=== PATIENT | male | born 1990 | race Two or more races ===

== ENCOUNTER → 2016-10-09 | Outpatient (CLI) | payer BC ==
[~2016-10-09] MED LIST: BUS10T PO; HYDR10TA35; HYDR50CA PO
[2016-10-09 14:16] LABS: Basophils # (auto) 0 uL; Basophils % (auto) 0.2 % (0.0-2.0); CONDITION Y; Eosinophils # (auto) 0.1 uL; Eosinophils % (auto) 2.7 % (0.0-7.0); Hematocrit 40.2 % (41.0-53.0); Hemoglobin 13.9 g/dL (13.5-17.5); Lymphocytes # (auto) 2.8 uL; Lymphocytes % (auto) 51.8 % (10.0-50.0); Mean Corpuscular Hemoglobin 30.6 pg (28.0-32.0); Mean Corpuscular Hgb Conc. 34.6 g/dL (32.0-36.0); Mean Corpuscular Volume 88.4 fL (80.0-100.0); Mean Platelet Volume 7.9 fL (7.4-10.4); Monocytes # (auto) 0.3 uL; Monocytes % (auto) 6.4 % (0.0-12.0); Neutrophils # (auto) 2.1 uL; Neutrophils % (auto) 38.9 % (37.0-80.0); Platelet Count (auto) 274 10^3/uL (140-450); White Blood Cell 5.4 10^3/uL (4.4-10.8)
[2016-10-09 14:37] LABS: Albumin 3.8 g/dL (3.4-5.0); Alkaline Phosphatase 67 U/L (45-117); Anion Gap 10 (5-15); Aspartate Aminotransferase 28 U/L (15-37); BUN/Creatinine Ratio 9.5; Bilirubin, Total 0.8 mg/dL (0.2-1.0); Blood Urea Nitrogen 12 mg/dL (7-18); Calcium 8.5 mg/dL (8.5-10.1); Carbon Dioxide 23 mmol/L (21-32); Chloride 105 mmol/L (98-107); GFR African American 89 mL/min; GFR Non-African American 74 mL/min; Glucose 145 mg/dL (74-106); Magnesium 2.3 mg/dL (1.6-2.6); Potassium 3.4 mmol/L (3.5-5.1); Sodium 138 mmol/L (136-145)
[2016-10-09 14:43] LABS: Vitamin B12 687 pg/mL (211-911)
[2016-10-09 14:45] LABS: Temperature: 23.9 C (20.0-25.0)
== END | disposition home or self-care (01) ==
LOC: LAB 13:57
DX: F84.9 Pervasive developmental disorder, unspecified (principal); R41.3 Other amnesia
CPT/HCPCS: 36415; 80053; 82550; 82607; 82746; 83735; 84439; 84443; 85025; 85652; 86141

== ENCOUNTER → 2016-11-19 | Outpatient (CLI) | payer BC ==
[2016-11-19 11:16] LABS: Cholesterol 144 mg/dL (< 200); HDL Cholesterol 88 mg/dL (40-59); LDL Cholesterol 69 mg/dL (< 100); Triglycerides 45 mg/dL (< 150)
== END | disposition home or self-care (01) ==
LOC: LAB 10:39
DX: E78.5 Hyperlipidemia, unspecified (principal)
CPT/HCPCS: 36415; 80061

== ENCOUNTER → 2016-12-09 | Outpatient (CLI) | payer BC | END | disposition home or self-care (01) | LOC: LAB 07:24 | DX: E11.9 Type 2 diabetes mellitus without complications (principal) | CPT/HCPCS: 36415; 82947; 83036 ==

== ENCOUNTER → 2017-12-10 | Outpatient (CLI) | payer BC ==
[2017-12-10 13:45] LABS: Basophils # (auto) 0 uL; Basophils % (auto) 0.5 % (0.0-2.0); Eosinophils # (auto) 0.1 uL; Eosinophils % (auto) 1.5 % (0.0-7.0); Hematocrit 42.2 % (41.0-53.0); Hemoglobin 14.8 g/dL (13.5-17.5); Lymphocytes # (auto) 1.8 uL; Lymphocytes % (auto) 28.4 % (10.0-50.0); Mean Corpuscular Hemoglobin 31.3 pg (28.0-32.0); Mean Corpuscular Hgb Conc. 34.9 g/dL (32.0-36.0); Mean Corpuscular Volume 89.5 fL (80.0-100.0); Monocytes # (auto) 0.7 uL; Monocytes % (auto) 10.5 % (0.0-12.0); Neutrophils # (auto) 3.8 uL; Neutrophils % (auto) 59.1 % (37.0-80.0); Nucleated Red Blood Cells % 0.1 %; Platelet Count (auto) 328 10^3/uL (140-450); Red Blood Cells 4.72 10^6/uL (4.5-5.90); Red Cell Distribution Width 12.8 % (11.8-14.3); White Blood Cell 6.4 10^3/uL (4.4-10.8)
[2017-12-10 15:33] LABS: Calcium 8.7 mg/dL (8.5-10.1); Potassium 3.8 mmol/L (3.5-5.1)
[2017-12-10 15:40] LABS: BUN/Creatinine Ratio 7.9; Bilirubin, Total 1.3 mg/dL (0.2-1.0); Total Protein 7.5 g/dL (6.4-8.2)
== END | disposition home or self-care (01) ==
LOC: LAB 13:23
PROVIDERS: ATTEND Internal Medicine
DX: F32.9 Major depressive disorder, single episode, unspecified (principal); F84.0 Autistic disorder
CPT/HCPCS: 36415; 80053; 84439; 84443; 85025; 86706

== ENCOUNTER → 2022-09-24 | Outpatient (CLI) | payer MEDICAID ==
[2022-09-24 08:59] LABS: Basophils # (auto) 0.1 10 ^3/uL (0-0.2); Basophils % (auto) 0.7 % (0.0-2.0); Eosinophils # (auto) 0.2 10 ^3/uL (0-0.8); Eosinophils % (auto) 2.8 % (0.0-7.0); Hematocrit 48.9 % (41.0-53.0); Hemoglobin 16.5 g/dL (13.5-17.5); Lymphocytes # (auto) 2.9 10 ^3/uL (0.4-5.4); Lymphocytes % (auto) 35.7 % (10.0-50.0); Mean Corpuscular Hemoglobin 30.6 pg (28.0-32.0); Mean Corpuscular Hgb Conc. 33.8 g/dL (32.0-36.0); Mean Corpuscular Volume 90.4 fL (80.0-100.0); Monocytes # (auto) 0.7 10 ^3/uL (0-1.3); Monocytes % (auto) 8.1 % (0.0-12.0); Neutrophils # (auto) 4.3 10 ^3/uL (1.6-8.6); Neutrophils % (auto) 52.7 % (37.0-80.0); Nucleated Red Blood Cells % 0.1 %; Red Blood Cells 5.41 10^6/uL (4.5-5.90); Red Cell Distribution Width 13.3 % (11.8-14.3); Urine Bacteria FEW /hpf (None Seen); Urine Blood Negative /uL (Negative); Urine Mucus FEW (None Seen); Urine Specific Gravity 1.032 (1.001-1.035); Urine Sperm PRESENT /hpf (None Seen); Urine WBC 10 /hpf (0 - 3); White Blood Cell 8.1 10^3/uL (4.4-10.8)
[2022-09-24 10:04] LABS: Albumin 3.9 g/dL (3.4-5.0); Anion Gap 7 (5-15); Carbon Dioxide 23 mmol/L (21-32); Chloride 110 mmol/L (98-107); Potassium 3.8 mmol/L (3.5-5.1); Sodium 140 mmol/L (136-145)
[2022-09-24 10:11] LABS: Alanine Aminotransferase 285 U/L (16-61); Alkaline Phosphatase 91 U/L (45-117); Aspartate Aminotransferase 153 U/L (15-37); Bilirubin, Total 1.8 mg/dL (0.2-1.0); Blood Urea Nitrogen 13 mg/dL (7-18); Cholesterol 189 mg/dL (< 200); GFR African American 92 mL/min; GFR Non-African American 76 mL/min; Glucose 111 mg/dL (74-106); HDL Cholesterol 50 mg/dL (40-59); LDL Cholesterol 118 mg/dL (< 100); Total Protein 7.5 g/dL (6.4-8.2); Triglycerides 143 mg/dL (< 150)
[2022-09-24 10:15] LABS: Hepatitis B Surface Antibody Positive (Negative)
[2022-09-24 10:53] LABS: Hepatitis A Total Antibody Positive (Negative)
[2022-09-24 11:53] LABS: Hepatitis C Antibody Negative (Negative)
== END | disposition home or self-care (01) ==
LOC: LAB 08:23
PROVIDERS: ATTEND Internal Medicine
DX: R79.89 Other specified abnormal findings of blood chemistry (principal)
CPT/HCPCS: 36415; 80053; 80061; 81001; 82043; 82570; 83036; 83970; 84443; 85025; 86592; 86703; 86704; 86706; 86708; 86803; 87045; 87177; 87340

== ENCOUNTER → 2022-10-13 | Outpatient (CLI) | payer MEDICAID ==
[2022-10-13 09:46] LABS: Albumin 4.1 g/dL (3.4-5.0); Bilirubin, Direct 0.2 mg/dL (0-0.2); Bilirubin, Total 0.9 mg/dL (0.2-1.0); Total Protein 7.5 g/dL (6.4-8.2)
== END | disposition home or self-care (01) ==
LOC: LAB 08:27
PROVIDERS: ATTEND Internal Medicine
DX: R79.89 Other specified abnormal findings of blood chemistry (principal)
CPT/HCPCS: 36415; 80076

== ENCOUNTER → 2022-11-12 | Outpatient (CLI) | payer MEDICAID | END | disposition home or self-care (01) | LOC: LAB 12:21 | PROVIDERS: ATTEND Internal Medicine Gastroenterology | DX: R10.9 Unspecified abdominal pain (principal) | CPT/HCPCS: 86677 ==

== ENCOUNTER → 2022-12-02 | Outpatient (CLI) | payer MEDICAID ==
[2022-12-02 14:54] LABS: Urine Bacteria NONE SEEN /hpf (None Seen); Urine Blood Negative /uL (Negative); Urine Clarity Clear (Clear); Urine Color Yellow (Yellow); Urine Mucus FEW (None Seen); Urine Protein, UAD Negative (Negative); Urine Specific Gravity 1.022 (1.001-1.035); Urine Urobilinogen Normal (Negative); Urine WBC 2 /hpf (0 - 3)
[2022-12-02 15:28] LABS: Alanine Aminotransferase 34 U/L (7-40); Albumin 4.7 g/dL (3.2-4.8); Alkaline Phosphatase 73 U/L (46-116); Anion Gap 6 (5-15); Aspartate Aminotransferase 29 U/L (13-40); BUN/Creatinine Ratio 7.3 (10.0-20.0); Blood Urea Nitrogen 9 mg/dL (9-23); Carbon Dioxide 28 mmol/L (20-30); Chloride 104 mmol/L (98-107); Glucose 94 mg/dL (74-106); Potassium 4.2 mmol/L (3.5-5.1); Sodium 138 mmol/L (136-145)
[2022-12-02 15:29] LABS: Bilirubin, Total 1.2 mg/dL (0.2-1.0); Total Protein 7.4 g/dL (5.7-8.2)
[2022-12-02 16:09] LABS: Amphetamine Screen, Urine Neg (NEGATIVE); Benzodiazephine Screen, Urine Neg (NEGATIVE)
[2022-12-02 16:10] LABS: Barbiturate Scree,Urine Neg (NEGATIVE); Cannabinoid Screen, Urine Neg (NEGATIVE); Cocaine Screen, Urine Neg (NEGATIVE); Opiate Scree,Urine Neg (NEGATIVE); Phencyclidine Screen, Urine Neg (NEGATIVE)
== END | disposition home or self-care (01) ==
LOC: LAB 14:33
PROVIDERS: ATTEND Internal Medicine
DX: N39.0 Urinary tract infection, site not specified (principal); F21 Schizotypal disorder
CPT/HCPCS: 36415; 80053; 80307; 81001

== ENCOUNTER 2024-01-08 05:22 | Emergency (ER) | payer MEDICAID ==
[~2024-01-08] VITALS: Ht 188 cm; Wt 84.0 kg
--- NOTE | 2024-01-08 05:44 | ED.PDOC ---
History of Present Illness HPI Comments 33 year old male came to ER due to overdose. Patient states at a bout 12 midnight he was drinking alcohol and snorted about 1 gm of cocaine. Shortly afterwards he started feeling tingly all over. he denies being suicidal. States he did cocaine before but never reacted this way to it. Chief Complaint: Overdose Time Seen by MD: 05:43 Primary Care Provider: ERIK Quiroga Notes: Nurses Notes Allergies: Coded Allergies: NO KNOWN ALLERGIES (Unverified , 08/20/10) Home Meds Active Scripts Hydroxyzine Pamoate (Vistaril) 50 Mg Cap, 50 MG PO HS PRN, #30 CAP Prov:GILMA RAHSID N.P. 04/05/13 Buspirone Hcl (Buspar) 10 Mg Tab, 10 MG PO DAILY, #30 TAB Prov:GILMA RASHID N.P. 04/05/13 Reported Medications Hydrocodone-Acetaminophen (Hydrocodone Bitartrate/Ac) 1 Tab Tab 08/20/10 Information Source: Patient Mode of Arrival: Ambulatory Severity: Moderate Timing: Hours Duration: Since onset Prehospital treatment: None Past Medical History PAST MEDICAL HISTORY: Anxiety, Schizophrenia Surgical History: Denies all surgeries Family History Family History: Reviewed,noncontributory to illness Social History Smoker: Non-Smoker Alcohol: Occasionally Drugs: Cocaine Lives In: Home Constitutional: denies: chills, diaphoresis, fatigue, fever, malaise, sweats, weakness, others EENTM: denies: blurred vision, double vision, ear bleeding, ear discharge, ear drainage, ear pain, ear ringing, eye pain, eye redness, hearing loss, mouth pain, mouth swelling, nasal discharge, nose bleeding, nose congestion, nose pain, photophobia, tearing, throat pain, throat swelling, voice changes, others Respiratory: denies: cough, hemoptysis, orthopnea, SOB at rest, shortness of breath, SOB with excertion, stridor, wheezing, others Cardiovascular: denies: chest pain, dizzy spells, diaphoresis, Dyspnea on exertion, edema, irregular heart beat, left arm pain, lightheadedness, palpitations, PND, syncope, others Gastrointestinal: denies: abdomen distended, abdominal pain, blood streaked bowels, constipated, diarrhea, dysphagia, difficulty swallowing, hematemesis, melena, nausea, poor appetite, poor fluid intake, rectal bleeding, rectal pain, vomiting, others Genitourinary: denies: burning, dysuria, flank pain, frequency, hematuria, incontinence, penile discharge, penile sore, pain, testicle pain, testicle swelling, urgency, others Neurological: denies: dizziness, fainting, headache, left sided numbness, left sided weakness, numbness, paresthesia, pre-existing deficit, right sided numbness, right sided weakness, seizure, speech problems, tingling, tremors, weakness, others Musculoskeletal: denies: back pain, gout, joint pain, joint swelling, muscle pain, muscle stiffness, neck pain, others Integumetry: denies: bruises, change in color, change in hair/nails, dryness, laceration, lesions, lumps, rash, wounds, others Allergic/Immunocompromised: denies: Difficulty Healing, Frequent Infections, Hives, Itching, others Hematologic/Lymphatic: denies: anemia, blood clots, easy bleeding, easy bruising, swollen glands, others Endocrine: denies: excessive hunger, excessive sweating, excessive thirst, excessive urination, flushing, intolerance to cold, intolerance to heat, unexplained weight gain, unexplained weight loss, others Psychiatric: reports: anxiety; denies: bipolar disorder, depression, hopeless, panic disorder, schizophrenia, sleepless, suicidal, others Physical Exam General Appearance: Mild Distress, Normal HEENT: Normal ENT Inspection, Pharynx Normal, TMs Normal Neck: Full Range of Motion, Non-Tender, Normal, Normal Inspection Respiratory: Chest Non-Tender, Lungs Clear, No Accessory Muscle Use, No Respiratory Distress, Normal Breath Sounds Cardiovascular: No Edema, No JVD, No Murmur, No Gallop, Normal Peripheral Pulses, Regular Rate/Rhythm Breast Exam: Deferred Gastrointestinal: No Organomegaly, Non Tender, No Pulsatile Mass, Normal Bowel Sounds, Soft Genitalia: Deferred Pelvic: Deferred Rectal: Deferred Extremities: No calf tenderness, Normal capillary refill, Normal inspection, Normal range of motion, Non-tender, No pedal edema Musculoskeletal : Apperance: Normal Neurologic: Alert, dog races manager II-XII nml as Tested, No Motor Deficits, Normal Affect, Normal Mood, No Sensory Deficits Cerebellar Function: Normal Reflexes: Normal Skin: Dry, Normal Color, Warm Peripheral Pulses: 3+ Radial (R), 3+ Radial (L) Lymphatic: No Adenopathy Was a procedure done? Was a procedure done?: No Differential Dx Considerations may include: substance abuse, alcohol intoxication X-Ray, Labs, Meds, VS Vital Signs Date Time Temp Pulse Resp B/P (MAP) Pulse Ox O2 Delivery O2 Flow Rate FiO2 01/08/24 08:00 97.9 111 22 122/81 (95) 99 97.9 01/08/24 08:00 105 01/08/24 07:30 101 28 99 Room Air* 0 21 01/08/24 06:00 128 13 104/59 (74) 95 01/08/24 05:45 98.0 135 22 161/59 (93) 98 98.0 01/08/24 05:45 135 22 95 Room Air* 0 21 01/08/24 05:33 130 01/08/24 05:22 98.0 138 20 188/122 (144) 95 Current Medications Medications (Trade) Dose Ordered Sig/Nanci Route Start Time Stop Time Status Last Admin Sodium Chloride 1,000 ml @ 1,000 mls/hr Q1H ONCE IV 01/08/24 05:45 01/08/24 06:44 DC 01/08/24 05:57 Lorazepam (Ativan Inj) 2 mg ONCE ONCE IV 01/08/24 05:45 01/08/24 05:46 DC 01/08/24 05:57 Patient alert. Drug use. Seen by night provider. Continued care. Vitals stable. Was given Ativan in the night. Establish intravenous access. Was given fluids pain On examination heart rate within normal limits. Blood pressure within normal limits. Saturation pristine on room air. No leg swelling. No sign of any distress. Insists on going home. Counseled patient on effects of drinking alcohol for 15 minutes. No head injury. No sign of any injury. Explained to the patient. Was told to follow up with his primary care physician. Was told to come back if there is any problem. Time of 1ST Reevaluation: 05:39 Reevaluation 1ST: Unchanged Time of 2ND Reevaluation: 09:46 Reevaluation 2ND: Improved Patient Education/Counseling: Diagnosis, Treatment Family Education/Counseling: No Family Present Departure 1 Departure Time of Disposition: 09:47 Impression: Primary Impression: Alcohol abuse Disposition: 01 HOME / SELF CARE / HOMELESS Condition: Good Discharged With: Self Critical Care Note Critical Care Time?: No Stability Stability form required: No Heart Score Heart Score: Heart Score Response (Comments) Value History N/A 0 EKG N/A 0 Age N/A 0 Risk Factors N/A 0 Troponin N/A 0 Total 0 I personally scribed for KHURRAM FLOWERS MD ([email or web address]) on 01/08/24 at 05:44. Electronically submitted by Joseph Russell ([email or web address]). KHURRAM FLOWERS MD Jan 08, 2024 05:44 FERNY SEGUNDO MD Jan 08, 2024 09:45
[2024-01-08 05:45] VITALS: PULSE 135; RESP 22; O2SAT 95
[2024-01-08] MEDS: LORazepam 2MG/ML-1ML VIAL IV ONE ×2 (05:57→10:02)
[2024-01-08] MEDS: SODIUM CHLORIDE 0.9% 1,000 ML IV ONE (05:57)
--- NOTE | 2024-01-08 07:02 | ECG ---
[facility] Test Date: 2024-01-08 Test Time: 05:33:41 Pat Name: GABRIELLE MCCALLUM Department: ER Room: Gender: M Transition Assistant: : 1990 Requested By: KHURRAM FLOWERS Order Number: [id number] Reading MD: Measurements Intervals [place] Rate: 130 P: 76 [place]: 116 QRS: 95 QRSD: 94 T: 55 QT: 402 QTc: 591 Interpretive Statements Sinus tachycardia Consider RVH w/ secondary repol abnormality Prolonged QT interval Artifact in lead(s) I,aVR,aVL,aVF,V1,V2,V3,V4,V5,V6 and baseline wander in lead(s) V3 Please click the below link to view image of tracing.
[2024-01-08 07:30] VITALS: PULSE 101; RESP 28; O2SAT 99
[2024-01-08 10:10] VITALS: BP 139/54; PULSE 111; RESP 22; TEMP 97.9; O2SAT 99
== END 2024-01-08 10:11 | disposition home or self-care (01) ==
LOC: ER 05:22
DX: F10.10 Alcohol abuse, uncomplicated (principal); F41.9 Anxiety disorder, unspecified; F20.9 Schizophrenia, unspecified; F15.90 Other stimulant use, unspecified, uncomplicated; Z79.899 Other long term (current) drug therapy; Y90.0 Blood alcohol level of less than 20 mg/100 ml
CPT/HCPCS: 93005; 96361; 96374; 96376; 99285; J2060; J7030